=== PATIENT | male | born 1960 | race Caucasian/White ===

== ENCOUNTER 2022-03-05 06:10 | Observation (INO) ==
[2022-03-05] MEDS ORDERED: CeFAZolin Syr 2,000MG/20 ML 2,000 MG/20 ML SYRINGE IVPB ONE (06:31)
[2022-03-05] MEDS ORDERED: Ringers Solution, Lactated 1,000 ML IVC SCH ×2 (06:45→16:45)
[2022-03-05] MEDS ORDERED: Famotidine 20 MG TABLET PO ONE (06:54)
[2022-03-05] MEDS ORDERED: tiZANidine 4 MG TABLET PO ONE (07:00)
[2022-03-05] MEDS ORDERED: Gabapentin 300 MG CAPSULE PO ONE (07:00)
[2022-03-05] MEDS ORDERED: *HR* Methadone 10 MG TABLET PO ONE (07:00)
[2022-03-05] MEDS ORDERED: *HR* OxyCODONE Immed Rel 5 MG TABLET PO ONE (07:11)
[2022-03-05] MEDS ORDERED: Vancomycin 1,000 MG VIAL ONE ×2 (07:12→08:29)
[2022-03-05] MEDS ORDERED: Ondansetron 4 MG/2 ML VIAL ONE (07:14)
[2022-03-05] MEDS ORDERED: *HR* Propofol 200 MG/20 ML VIAL IVP ONE ×2 (07:14→11:15)
[2022-03-05] MEDS ORDERED: *HR* Rocuronium Bromide 50 MG/5 ML VIAL ONE ×2 (07:14→11:25)
[2022-03-05] MEDS ORDERED: *HR* Succinylcholine 200 MG/10 ML VIAL IVP ONE (07:14)
[2022-03-05] MEDS ORDERED: Lidocaine HCL 4 ML Topical Solution (Laryng-O-Jet Kit Sterile Pak) TP ONE (07:14)
[2022-03-05] MEDS ORDERED: *HR* Midazolam HCl 2 MG/2 ML VIAL ONE (07:14)
[2022-03-05] MEDS ORDERED: *HR* FentaNYL (PF) 100 MCG/2 ML VIAL ONE (07:14)
[2022-03-05] MEDS ORDERED: Lidocaine -MPF 2% 2 ML VIAL ONE (07:15)
[2022-03-05] MEDS ORDERED: *HR* Remifentanil 2 MG VIAL IVP ONE ×3 (07:21→12:29)
[2022-03-05] MEDS ORDERED: *HR* Phenylephrine 10 MG/ML VIAL ONE ×3 (07:25→11:33)
[2022-03-05] MEDS ORDERED: *HR* Vasopressin 20 UNIT/ML VIAL ONE (07:59)
[2022-03-05] MEDS ORDERED: Albumin Human 5% 25.0 GM/500 ML IV.SOLN ONE (08:21)
[2022-03-05] MEDS ORDERED: Sugammadex Sodium 200 MG/2 ML VIAL IV ONE (11:38)
[2022-03-05] MEDS ORDERED: *HR* HYDROMORPHONE 2 MG/ML VIAL ONE (12:42)
[2022-03-05] MEDS ORDERED: Ondansetron 4 MG/2 ML VIAL IVP PRN ×2 (13:15→16:45)
[2022-03-05] MEDS ORDERED: *HR* Labetalol 20 MG/4 ML SYRINGE IVP ONE (13:47)
[2022-03-05] MEDS: *HR* HYDROmorphone PF 0.5 MG/0.5 ML SYRINGE IVP PRN ×4 (14:39→15:16)
[2022-03-05] MEDS ORDERED: Baclofen 10 MG TABLET PO PRN (16:45)
[2022-03-05] MEDS ORDERED: Acetaminophen 325 MG TABLET PO PRN (16:45)
[2022-03-05] MEDS ORDERED: Naloxone 0.4 MG/ML INJ IVP PRN (16:45)
[2022-03-05] MEDS: CeFAZolin 2 GM/120 ML BAG IVPB SCH (18:22)
[2022-03-05] MEDS: *HR* OxyCODONE Immed Rel 5 MG TABLET PO PRN (18:49)
[2022-03-05] MEDS ORDERED: *HR* Methotrexate 2.5 MG TABLET PO SCH (21:00)
[2022-03-05] MEDS: *HR* HYDROcodone/Acet 5/325 mg TABLET PO PRN (21:35)
[2022-03-05] MEDS: RUXOLITINIB PHOSPHATE TP SCH (21:37)
[2022-03-06] MEDS: *HR* OxyCODONE Immed Rel 5 MG TABLET PO PRN ×3 (00:28→16:45)
[2022-03-06] MEDS: CeFAZolin 2 GM/120 ML BAG IVPB SCH (00:29)
[2022-03-06] MEDS: *HR* HYDROcodone/Acet 5/325 mg TABLET PO PRN ×3 (05:23→19:40)
[2022-03-06] MEDS: RUXOLITINIB PHOSPHATE TP SCH ×2 (09:14→19:41)
[2022-03-06] MEDS: lisinopriL 20 MG TABLET PO SCH (09:43)
[2022-03-06] MEDS: Folic Acid 1 MG TABLET PO SCH (09:43)
[2022-03-06] MEDS: Triamcinolone Acet 0.1% CRM 15 GM TUBE TP SCH ×3 (09:45→19:41)
[2022-03-07] MEDS: *HR* OxyCODONE Immed Rel 5 MG TABLET PO PRN ×2 (00:06→08:59)
[2022-03-07 07:38] VITALS: O2SAT 93
[2022-03-07] MEDS: lisinopriL 20 MG TABLET PO SCH (08:59)
[2022-03-07] MEDS: Folic Acid 1 MG TABLET PO SCH (08:59)
[2022-03-07] MEDS: RUXOLITINIB PHOSPHATE TP SCH (09:00)
[2022-03-07] MEDS ORDERED: Triamcinolone Acet 0.1% CRM 15 GM TUBE TP SCH (09:00)
[2022-03-07] MEDS: Triamcinolone Acet 0.1% CRM 15 GM TUBE TP SCH (09:00)
[2022-03-07 10:40] VITALS: BP 118/67; PULSE 85; TEMP 99
== END 2022-03-07 12:19 | disposition home health service (06) ==
LOC: SDCAOSI 06:10 → 4WAOSI 06:10
PROVIDERS: ADMIT Orthopaedic Surgery Orthopaedic Surgery of the Spine; ATTEND Orthopaedic Surgery Orthopaedic Surgery of the Spine